=== PATIENT | female | born 1970 | race Two or more races ===

== ENCOUNTER 2023-06-15 09:10 | Outpatient (CLI) | payer OTHER | END 2023-06-15 09:19 | disposition home or self-care (01) | LOC: NUCLEAR 09:10 | DX: R06.02 Shortness of breath (principal) ==

== ENCOUNTER 2025-03-26 12:47 | Outpatient (CLI) | payer OTHER | END 2025-03-26 13:02 | disposition home or self-care (01) | LOC: MAMO-SONO 12:47 | DX: N64.4 Mastodynia (principal) ==